=== PATIENT | male | born 1990 | race Caucasian/White ===

== ENCOUNTER 2019-10-24 21:24 | Emergency (ER) | payer SELFPAY ==
[~2019-10-24] VITALS: Ht 177.8 cm; Wt 100.0 kg
[2019-10-24] MEDS ORDERED: TRAM50TA PO (22:13)
[2019-10-24] MEDS ORDERED: ORPH100T PO (22:13)
[2019-10-24] MEDS ORDERED: DICL50TA4 PO (22:13)
--- NOTE | 2019-10-24 22:14 | PHYS DOC ---
Past Medical History Past Medical History: Other Additional Past Medical Histor: SMOKER AND LOWER BACK PAIN Past Surgical History: Other Additional Past Surgical Histo: NASAL SURGERY 2006 Smoking Status: Current Every Day Smoker Additional Information: 1 PPD X9 YEARS Alcohol Use: None Drug Use: None General Adult EDM: Chief Complaint: BACK PAIN - NO INJURY HPI: HPI: Patient is a 29 year old male who presents with complaint of lower back pain bilaterally that radiates down both of his legs, left worse than right. Patient states that he was lifting heavy furniture, moving from one house to another and has had this pain for the last 2 days. He denies any loss of bowel or bladder control. He rates pain at an 8 out of 10 and states the pain is worsened with walking.[] Review of Systems: Review of Systems: Constitutional: Denies fever or chills. [] Respiratory: Denies cough or shortness of breath. [] Cardiovascular: Denies chest pain or edema. [] Musculoskeletal: Complains of lower back pain. [] Integument: Denies rash. [] Neurologic: Denies headache, focal weakness or sensory changes. [] Heart Score: Risk Factors: Risk Factors: DM, Current or recent (<one month) smoker, HTN, HLP, family history of CAD, obesity. Risk Scores: Score 0 - 3: 2.5% MACE over next 6 weeks - Discharge Home Score 4 - 6: 20.3% MACE over next 6 weeks - Admit for Clinical Observation Score 7 - 10: 72.7% MACE over next 6 weeks - Early Invasive Strategies Allergies: Allergies: Allergies Coded Allergies Type Severity Reaction Last Updated Verified No Known Drug Allergies 03/27/14 No Physical Exam: PE: Constitutional: Well developed, well nourished, no acute distress, non-toxic appearance. [] Cardiovascular:Heart rate regular rhythm, no murmur [] Lungs & Thorax: Bilateral breath sounds clear to auscultation [] Skin: Warm, dry, no erythema, no rash. [] Back: There is tenderness to palpation bilateral sacral sulci as well as over the left piriformis muscle. [] Extremities: No tenderness, no cyanosis, no clubbing, ROM intact, no edema. [] Neurologic: Alert and oriented X 3, no focal deficits noted. [] Current Patient Data: Vital Signs: Vital Signs Date Time Temp Pulse Resp B/P (MAP) Pulse Ox O2 Delivery O2 Flow Rate FiO2 10/24/19 21:42 98.2 91 16 164/81 (108) 94 Room Air 98.2 EKG: EKG: [] Radiology/Procedures: Radiology/Procedures: [] Course & Med Decision Making: Course & Med Decision Making Pertinent Labs and Imaging studies reviewed. (See chart for details) [] Dragon Disclaimer: Dragon Disclaimer: This electronic medical record was generated, in whole or in part, using a voice recognition dictation system. Departure Departure Impression: Primary Impression: Acute exacerbation of chronic low back pain Additional Impression: Sciatica Qualified Codes: M54.31 - Sciatica, right side; M54.32 - Sciatica, left side Disposition: 01 HOME, SELF-CARE Condition: STABLE Referrals: NO PCP (PCP) Patient Instructions: Back Pain, Adult, Sciatica Scripts Tramadol Hcl (TRAMADOL HCL) 50 Mg Tablet 50 MG PO Q6HRS PRN for PAIN, #12 TAB Prov: ALLISON BURRELL Jr. DO 10/24/19 Orphenadrine Citrate (ORPHENADRINE CITRATE) 100 Mg Tablet.er 1 TAB PO BID PRN for MUSCLE SPASMS, #14 TAB Prov: ALLISON BURRELL Jr. DO 10/24/19 Diclofenac Sodium (DICLOFENAC SODIUM) 50 Mg Tablet.dr 1 TAB PO BID PRN for PAIN, #20 TAB Prov: ALLISON BURRELL Jr. DO 10/24/19 ALLISON BURRELL Jr. DO October 24, 2019 22:13
[2019-10-24] MEDS ORDERED: DEXAMETHASONE SOD PHOS 20 MG/5 ML VIAL. IM ONE (22:15)
[2019-10-24] MEDS ORDERED: ORPHENADRINE CITRATE 60 MG/2 ML VIAL. IM ONE (22:15)
[2019-10-24] MEDS ORDERED: KETOROLAC 60 MG/2 ML VIAL. IM ONE (22:15)
[2019-10-24 23:10] VITALS: BP 140/85
== END 2019-10-24 23:10 | disposition home or self-care (01) ==
LOC: ER 21:24
DX: G89.29 Other chronic pain (principal); M54.41 Lumbago with sciatica, right side; M54.42 Lumbago with sciatica, left side; F17.200 Nicotine dependence, unspecified, uncomplicated; Z98.890 Other specified postprocedural states
CPT/HCPCS: 96372; 99284; J1100; J1885; J2360

== ENCOUNTER 2020-04-19 10:21 | Emergency (ER) | payer SELFPAY ==
[~2020-04-19] VITALS: Ht 177.8 cm; Wt 104.0 kg
[~2020-04-19 10:21] MED LIST: DICL50TA4 PO; ORPH100T PO; TRAM50TA PO
[2020-04-19 10:29] VITALS: BP 139/90
[2020-04-19] MEDS ORDERED: KETOROLAC 60 MG/2 ML VIAL. IM ONE (11:00)
--- NOTE | 2020-04-19 11:09 | PHYS DOC ---
Past Medical History Past Medical History: Other Additional Past Medical Histor: SMOKER AND LOWER BACK PAIN Past Medical History lumbar disc disease Past Surgical History: Other Additional Past Surgical Histo: NASAL SURGERY 2005 Smoking Status: Current Every Day Smoker Alcohol Use: None Drug Use: None General Adult EDM: Chief Complaint: LOWER BACK PAIN OR INJURY HPI: HPI: Patient is a 29 year old with a chief complaint of lumbar back pain on the left side that began yesterday. Patient's had burning sensation in his left lateral proximal leg for months but yesterday started having back pain that shoots down his leg. Pain is worse with sitting straight and certain range of motion. Patient describes the pain as a sharp stabbing and shooting pain. Pain is severe in intensity. Patient denies any hematuria or loss of bowel or bladder control. Patient denies any fevers, chills, cough, vomiting, or diarrhea. Review of Systems: Review of Systems: Constitutional: Denies fever or chills. [] Eyes: Denies change in visual acuity. [] HENT: Denies nasal congestion or sore throat. [] Respiratory: Denies cough or shortness of breath. [] Cardiovascular: Denies chest pain or edema. [] GI: Denies abdominal pain, nausea, vomiting, bloody stools or diarrhea. [] : Denies dysuria. [] Musculoskeletal: Complains of back pain but no joint pain. [] Integument: Denies rash. [] Neurologic: Denies headache, focal weakness or complains of some numbness to the upper lateral left thigh, patient denies fecal or urinary incontinence Endocrine: Denies polyuria or polydipsia. [] Lymphatic: Denies swollen glands. [] Psychiatric: Denies depression or anxiety. [] Heart Score: Risk Factors: Risk Factors: DM, Current or recent (<one month) smoker, HTN, HLP, family history of CAD, obesity. Risk Scores: Score 0 - 3: 2.5% MACE over next 6 weeks - Discharge Home Score 4 - 6: 20.3% MACE over next 6 weeks - Admit for Clinical Observation Score 7 - 10: 72.7% MACE over next 6 weeks - Early Invasive Strategies Current Medications: Current Medications Medications (Trade) Dose Ordered Sig/Fredy Start Time Stop Time Status Last Admin Dose Admin Ketorolac Tromethamine (Toradol Im) 30 mg 1X ONCE 04/19/20 11:00 04/19/20 11:01 DC 04/19/20 11:02 30 MG Allergies: Allergies: Allergies Coded Allergies Type Severity Reaction Last Updated Verified No Known Drug Allergies 03/27/14 No Physical Exam: PE: Constitutional: Well developed, well nourished, no acute distress, non-toxic appearance. [] HENT: Normocephalic, atraumatic, bilateral external ears normal, no trismus nose normal. [] Eyes: PERRLA, EOMI, conjunctiva normal, no discharge. [] Neck: Normal range of motion, no tenderness, supple, no stridor. [] Cardiovascular:Heart rate regular rhythm peripheral pulses are intact cap refill is brisk Lungs & Thorax: Bilateral breath sounds clear, no respiratory distress Abdomen: , soft, no tenderness, no masses, no pulsatile masses. [] Skin: Warm, dry, no erythema, no rash. [] Back: Limited range of motion with tenderness to left lumbar area Extremities: No tenderness, no cyanosis, no clubbing, ROM intact, no edema. [] Neurologic: Alert and oriented X 3, normal motor function, normal sensory function, no focal deficits noted. [] No saddle anesthesia, dorsiflexion of the great toes intact bilateral lower extremities Psychologic: Affect normal, judgement normal, mood normal. [] Current Patient Data: Vital Signs: Vital Signs Date Time Temp Pulse Resp B/P (MAP) Pulse Ox O2 Delivery O2 Flow Rate FiO2 04/19/20 10:29 98.1 110 18 139/90 (106) 99 Room Air 98.1 EKG: EKG: [] Radiology/Procedures: Radiology/Procedures: [] Course & Med Decision Making: Course & Med Decision Making Pertinent Labs and Imaging studies reviewed. (See chart for details) [] Symptoms are consistent with herniated disc and sciatica. Patient has no evidence of cauda equina. Patient be treated steroids muscle at present pain medicines. Patient will give referral to a spinal specialist with return precautions. Dragon Disclaimer: Stephen Disclaimer: This electronic medical record was generated, in whole or in part, using a voice recognition dictation system. Departure Departure Impression: Primary Impression: Lumbar disc disease Additional Impression: Sciatica of left side Disposition: DC HOME SELF CARE/HOMELESS Condition: STABLE Referrals: NO PCP (PCP) DAVID PINEDA MD 2-3 days Patient Instructions: Herniated Disk Additional Instructions: EMERGENCY DEPARTMENT GENERAL DISCHARGE INSTRUCTIONS THANK YOU for coming to [facility] Emergency Department (ED) today and trusting us with your care. We trust that you had a positive experience in our Emergency Department. If you wish to speak to the department Management you can contact the criminal justice department chair at . YOUR FOLLOW UP INSTRUCTIONS ARE FOLLOWS: Do you have a private doctor? If you do not have a private doctor, please ask for a resource list of physicians or clinics that may be able to assist you with follow up care. The Emergency Physician has interpreted your x-rays. The X-ray specialist will also review them. If there is a change in the findings you will be notified in 48 hours when at all possible. A lab test or lab culture may have been done, your results will be reviewed and you will be notified if you need a change in treatment. ADDITIONAL INSTRUCTIONS AND INFORMATION Your care today has been supervised by a physician who is specially trained in emergency care. Many problems require more than one evaluation for a complete diagnosis and treatment. We recommend that you schedule your follow up appointment as recommended to ensure complete treatment of your illness or injury. If you are unable to obtain follow up care and continue to have a problem, or if your condition worsens we recommend that you return to the ED. We are not able to safely determine your condition over the phone nor are we able to give sound medical advice over the phone. For these safety reasons, if you call for medical advice we will ask you to come to the ED for further evaluation If you have any questions regarding these discharge instructions please call the ED at . SAFETY INFORMATION In the interest of safety, wellness, and injury prevention; we encourage you to wear your seatbelt, if you smoke; quit smoking, and we encourage your family to use protective helmet for bicycling and other sporting events that present an increased risk for head injury. IF YOUR SYMPTOMS WORSEN OR NEW SYMPTOMS DEVELOP, OR YOU HAVE CONCERNS ABOUT YOUR CONDITION; OR IF YOUR CONDITION WORSENS WHILE YOU ARE WAITING FOR YOUR FOLLOW UP APPOINTMENT; EITHER CONTACT YOUR PRIMARY CARE DOCTOR, THE PHYSICIAN WHOSE NAME AND NUMBER YOU WERE GIVEN, OR RETURN TO THE ED IMMEDIATELY. Scripts Hydrocodone/Apap 5-325 (NORCO 5-325 TABLET) 1 Each Tablet 1-2 EACH PO PRN Q6HRS PRN for PAIN, #15 as needed for pain Prov: EMILY CONTRERAS MD 04/19/20 Methocarbamol (ROBAXIN-750) 750 Mg Tablet 1 TAB PO TID for 5 Days, #15 TAB 0 Refills Prov: EMILY CONTRERAS MD 04/19/20 Methylprednisolone (MEDROL) 4 Mg Tab.ds.pk 1 PKG PO UD, #1 PKG Prov: EMILY CONTRERAS MD 04/19/20 EMILY CONTRERAS MD Apr 19, 2020 11:09
[2020-04-19] MEDS ORDERED: HYDR-3164 PO (11:17)
[2020-04-19] MEDS ORDERED: METH-38 PO (11:17)
[2020-04-19] MEDS ORDERED: METH4TAB2 PO (11:17)
== END 2020-04-19 12:01 | disposition home or self-care (01) ==
LOC: ER 10:21
DX: M54.42 Lumbago with sciatica, left side (principal); M51.36 Other intervertebral disc degeneration, lumbar region; F17.200 Nicotine dependence, unspecified, uncomplicated
CPT/HCPCS: 96372; 99283; J1885